=== PATIENT | male | born 1940 | race Caucasian/White ===

== ENCOUNTER 2016-07-09 15:41 | Observation (INO) | payer BC ==
--- NOTE | 2016-07-09 16:15 | EDPHY ---
H & P Stated Complaint: Bleeding per rectum. Had colonscopy 10 days ago with polyp removal. Time Seen by Provider: 07/09/16 15:58 HPI/ROS: CHIEF COMPLAINT: GI bleeding HISTORY OF PRESENT ILLNESS: 76-year-old male with no anticoagulant use postop day [address] Delta Schaefer, experienced a single episode of bright red blood discharge per rectum yesterday afternoon. He has been wearing Depends undergarments and reports 3 episodes today of similar stool mixed in predominantly with bright red blood. No nausea or vomiting. No dizziness. No chest pain. No abdominal pain. No syncope or near syncope. No dyspnea. No prior history of similar. PRIMARY CARE PROVIDER: Dr. Williams Hummel REVIEW OF SYSTEMS: A ten point review of systems was performed and is negative with the exception of the items mentioned in the HPI PAST MEDICAL & SURGICAL HISTORY: Hypertension. SOCIAL HISTORY: . PHYSICAL EXAM (Prior to examination, patient consented to physical exam, hands were washed and my usual and customary physical exam procedures followed) 1) GENERAL: Well-developed, well-nourished, alert and oriented. Appears to be in no acute distress. 2) HEAD: Normocephalic, atraumatic 3) HEENT: Pupils equal, round, reactive to light bilaterally. Sclera anicteric. Nasopharynx, oropharynx, clear, no lesions. 4) NECK: Full range of motion, no meningeal signs. 5) LUNGS: Clear auscultation bilaterally, no wheezes, no rhonchi, no retractions. 6) HEART: Regular rate and rhythm, no murmur, no heave, no gallop. 7) ABDOMEN: No guarding, no rebound, no focal tenderness, negative McBurney's, negative Ames's, negative Rovsing's, negative peritoneal sign, 8) MUSCULOSKELETAL: Moving all extremities, no focal areas of tenderness, no obvious trauma. No peripheral edema or discoloration. 9) BACK: No CVA tenderness, no midline vertebral tenderness, no fluctuance, no step-off, no obvious trauma, no visual or palpable abnormality. 10) SKIN: No rash, no petechiae. 11) rectal: Bright red blood per rectum DIFFERENTIAL DIAGNOSIS: in no particular include but limited to upper GI bleed , lower GI bleed, post polypectomy bleed - Personal History Current Tetanus/Diphtheria Vaccine: Yes Current Tetanus Diphtheria and Acellular Pertussis (TDAP): Yes - Medical/Surgical History Hx Asthma: No Hx Chronic Respiratory Disease: No Hx Diabetes: No Hx Cardiac Disease: No Hx Renal Disease: No Hx Cirrhosis: No Hx Alcoholism: No Hx HIV/AIDS: No Hx Splenectomy or Spleen Trauma: No Other PMH: HTN - Social History Smoking Status: Never smoked Constitutional: Initial Vital Signs Temperature (C) 36.5 C 07/09/16 15:48 Heart Rate 76 07/09/16 15:48 Blood Pressure 147/59 H 07/09/16 15:48 O2 Sat (%) 93 07/09/16 15:48 O2 Delivery Mode Room Air Allergies/Adverse Reactions: No Known Allergies Allergy (Unverified 02/04/15 15:11) Home Medications: Medication Instructions Recorded Crestor 02/04/15 Levoxyl 02/04/15 Lisinopril 02/04/15 Proscar 5 MG (RX) 02/04/15 Medical Decision Making ED Course/Re-evaluation: 4:15 p.m.: I have evaluated the patient. Discussed case Dr. Lina Wilcox. Will plan on more than likely admission 5:05 p.m.: Phone consultation with on-call gastroenterology Dr. mary marsh who recommended patient be admitted, started on GoLYTELY prep and Dr. Pankaj Marques will be consulting for Gastroenterology 5:10 p.m.: Phone consultation with Dr. Ronna Luque who will admit the patient - Data Points Laboratory Results: Laboratory Results 07/09/16 16:00 07/09/16 07/09/16 07/09/16 16:12 16:00 16:00 WBC RBC Hgb Hct MCV MCH MCHC RDW Plt Count MPV Neut % (Auto) Lymph % (Auto) Callahan % (Auto) Eos % (Auto) Baso % (Auto) Nucleat RBC Rel Count Absolute Neuts (auto) Absolute Lymphs (auto) Absolute Monos (auto) Absolute Eos (auto) Absolute Basos (auto) Absolute Nucleated RBC Immature Gran % Immature Gran # PT INR APTT Sodium 140 mEq/L mEq/L (134-144) Potassium 4.2 mEq/L mEq/L (3.5-5.2) Chloride 107 mEq/L mEq/L (97-110) Carbon Dioxide 23 mEq/l mEq/l (22-31) Anion Gap 10 mEq/L mEq/L (8-16) BUN 17 mg/dL mg/dL (7-23) Creatinine 0.9 mg/dL mg/dL (0.7-1.3) Estimated GFR > 60 Glucose 103 mg/dL H mg/dL (70-100) Calcium 8.8 mg/dL mg/dL (8.5-10.4) Stool Occult Bld Scrn POSITIVE H (NEGATIVE) Patient ABO/Rh A POSITIVE Antibody Screen NEGATIVE 07/09/16 07/09/16 16:00 16:00 WBC Pending RBC Pending Hgb Pending Hct Pending MCV Pending MCH Pending MCHC Pending RDW Pending Plt Count Pending MPV Pending Neut % (Auto) Pending Lymph % (Auto) Pending Callahan % (Auto) Pending Eos % (Auto) Pending Baso % (Auto) Pending Nucleat RBC Rel Count Pending Absolute Neuts (auto) Pending Absolute Lymphs (auto) Pending Absolute Monos (auto) Pending Absolute Eos (auto) Pending Absolute Basos (auto) Pending Absolute Nucleated RBC Pending Immature Gran % Pending Immature Gran # Pending PT 13.7 SEC SEC (12.0-15.0) INR 1.06 (0.83-1.16) APTT 26.9 SEC SEC (23.0-38.0) Sodium Potassium Chloride Carbon Dioxide Anion Gap BUN Creatinine Estimated GFR Glucose Calcium Stool Occult Bld Scrn Patient ABO/Rh Antibody Screen Departure - Departure Disposition: [facility] Inpatient Acute Clinical Impression: Post-polypectomy bleeding Condition: Fair
[2016-07-09 16:31] LABS: % IMMATURE GRANULYOCYTES 0.2 % (0.0-1.1); ABSOLUTE IMMATURE GRANULOCYTES 0.02 10^3/uL (0.00-0.10); ADD DIFF? NO; ADD MORPH? NO; ADD SCAN? YES; FRAGMENT RBC FLAG 0 (0-99); HEMATOCRIT 37.1 % (40.0-51.0); HEMOGLOBIN 12.8 g/dL (13.7-17.5); LEFT SHIFT FLG 0 (0-99); LIPEMIA HEMOLYSIS FLAG 90 (0-99); MEAN CELL HEMOGLOBIN 33.3 pg (27.9-34.1); MEAN CELL HEMOGLOBIN CONCENTR. 34.5 g/dL (32.4-36.7); MEAN CELL VOLUME 96.6 fL (81.5-99.8); MEAN PLATELET VOLUME 9.2 fL (8.7-11.7); PLATELET CLUMPS FLAG 0 (0-99); PLATELET COUNT 222 10^3/uL (150-400); RED BLOOD CELL COUNT 3.84 10^6/uL (4.40-6.38); RED CELL DISTRIBUTION WIDTH 13.5 % (11.5-15.2)
[2016-07-09 16:35] LABS: INR 1.06 (0.83-1.16); PROTIME(PATIENT) 13.7 SEC (12.0-15.0)
[2016-07-09 16:36] LABS: APTT 26.9 SEC (23.0-38.0)
[2016-07-09 16:39] LABS: ATYPICAL LYMPHOCYTE FLAG 200 (0-99)
[2016-07-09 16:49] LABS: ANION GAP 10 mEq/L (8-16); CALCIUM 8.8 mg/dL (8.5-10.4); CARBON DIOXIDE 23 mEq/l (22-31); CHLORIDE 107 mEq/L (97-110); CREATININE 0.9 mg/dL (0.7-1.3); GLOMERULAR FILTRATION RATE > 60; GLUCOSE 103 mg/dL (70-100); POTASSIUM 4.2 mEq/L (3.5-5.2); SODIUM 140 mEq/L (134-144)
[2016-07-09 17:14] LABS: SCAN POSITIVE
[2016-07-09 17:18] LABS: PLATELET ESTIMATE ADEQUATE (ADEQ); POLYCHROMASIA 1+
[2016-07-09 17:20] LABS: SMUDGE CELLS 1+
[2016-07-09] MEDS ORDERED: ACETAMINOPHEN 325 MG TAB PO PRN (17:55)
[2016-07-09] MEDS ORDERED: ONDANSETRON DISINTEGRATING 4 MG TAB PO PRN (17:55)
[2016-07-09] MEDS ORDERED: ONDANSETRON 4 MG/2 ML VIAL IVP PRN (17:55)
[2016-07-09] MEDS ORDERED: NS 1,000 ML IV SCH (18:00)
--- NOTE | 2016-07-09 18:33 | PDGENHP ---
History and Physical - Chief Complaint Acute hematochezia - History of Present Illness PCP: Dr. Hummel Primary back office medical assistant: Dr. Schaefer HPI: 76-year-old male presenting with acute hematochezia characterized as copious lauren blood per rectum with onset of symptoms at 2:00 p.m. on 07/08/2016 and duration persistent thereafter. Patient reports that he had just finished skiing in [place] and he felt the urge to defecate. When he went to move his bowels, lauren dark blood immediately emptied into the toilet. Did not experience any rectal or abdominal pain. He has not been experiencing any nausea or vomiting. After that initial episode, the patient began to experience a very slow but steady leakage of bloody material from his rectum. He did not take any medications to slow down the leakage. He has otherwise been taking all of his home medications including aspirin 81 mg daily. He recently underwent a colonoscopy 9 days ago where he had several polyps removed. Dr. Schaefer medical office rep contacted the patient on 07/08 and informed him that these polyps were benign and considered pre cancerous. Was also informed that he had several larger polyps which had not been removed and he was advised to have a repeat colonoscopy in July of 2016. He notes that his exercise tolerance has not recently been reduced and he has not been experiencing any recent chest pain. He did have some associated nausea and discomfort with his last colonoscopy prep. He has otherwise been eating and drinking well. History Information - Allergies/Home Medication List Allergies/Adverse Reactions: No Known Allergies Allergy (Unverified 02/04/15 15:11) Home Medications: Aspirin [Aspirin 81mg (*)] 81 mg PO DAILY 07/09/16 [Last Taken 07/09/16] Atorvastatin Calcium [Lipitor 20 mg (*)] 20 mg PO DAILY 07/09/16 [Last Taken ] Finasteride [Proscar 5 MG (*)] 5 mg PO DAILY 07/09/16 [Last Taken 07/09/16] Herbals/Supplements -Info Only 1 ea PO DAILY 07/09/16 [Last Taken Unknown] Levothyroxine [Synthroid 100 mcg (*)] 100 mcg PO DAILY@06 07/09/16 [Last Taken 07/09/16] Lisinopril [Zestril 20 mg (*)] 20 mg PO DAILY 07/09/16 [Last Taken 07/09/16] Multivitamins [Multivitamin (*)] 1 each PO DAILY 07/09/16 [Last Taken Unknown] I have personally reviewed and updated: family history, medical history, social history, surgical history - Past Medical History hypertension - Surgical History Additional surgical history: Recent colonoscopy with polypectomy 9 days ago, reportedly benign and pre cancers - Family History Additional family history: No family history of GI cancers, patient's father had a myocardial infarction at age 52 - Social History Smoking Status: Never smoked Alcohol Use: Occasionally (Never experienced alcohol withdrawal) Drug Use: None Additional social history: Patient is a retired meterologist for [employer] Review of Systems ROS: 10pt was reviewed & negative except for what was stated in HPI & below Gastrointestinal: Reports: rectal bleeding Physical Exam Temp Pulse Resp BP Pulse Ox 36.5 C 76 147/59 H 93 07/09/16 15:48 07/09/16 15:48 07/09/16 15:48 07/09/16 15:48 Constitutional: no apparent distress, appears nourished, not in pain Eyes: PERRL, anicteric sclera, EOMI Ears, Nose, Mouth, Throat: moist mucous membranes, hearing normal, ears appear normal, no oral mucosal ulcers Cardiovascular: regular rate and rhythym, no murmur, rub, or gallop, No edema Respiratory: no respiratory distress, no rales or rhonchi, clear to auscultation Gastrointestinal: normoactive bowel sounds, soft, non-tender abdomen, no palpable masses Genitourinary: no bladder fullness, no bladder tenderness Skin: warm, normal color, no rashes or abrasions, no fluctuance, no induration, No mottled Neurologic: AAOx3, No facial droop Psychiatric: interacting appropriately, not anxious, not encephalopathic, thought process linear Lab Data & Imaging Review 07/09/16 16:00 07/09/16 16:00 WBC 8.82 10^3/uL (3.80-9.50) 07/09/16 16:00 RBC 3.84 10^6/uL (4.40-6.38) L 07/09/16 16:00 Hgb 12.8 g/dL (13.7-17.5) L 07/09/16 16:00 Hct 37.1 % (40.0-51.0) L 07/09/16 16:00 MCV 96.6 fL (81.5-99.8) 07/09/16 16:00 MCH 33.3 pg (27.9-34.1) 07/09/16 16:00 MCHC 34.5 g/dL (32.4-36.7) 07/09/16 16:00 RDW 13.5 % (11.5-15.2) 07/09/16 16:00 Plt Count 222 10^3/uL (150-400) 07/09/16 16:00 MPV 9.2 fL (8.7-11.7) 07/09/16 16:00 Neut % (Auto) 29.7 % (39.3-74.2) L 07/09/16 16:00 Lymph % (Auto) 61.1 % (15.0-45.0) H 07/09/16 16:00 [place] % (Auto) 6.7 % (4.5-13.0) 07/09/16 16:00 Eos % (Auto) 1.6 % (0.6-7.6) 07/09/16 16:00 Baso % (Auto) 0.7 % (0.3-1.7) 07/09/16 16:00 Nucleat RBC Rel Count 0.0 % (0.0-0.2) 07/09/16 16:00 Absolute Neuts (auto) 2.62 10^3/uL (1.70-6.50) 07/09/16 16:00 Absolute Lymphs (auto) 5.39 10^3/uL (1.00-3.00) H 07/09/16 16:00 Absolute Monos (auto) 0.59 10^3/uL (0.30-0.80) 07/09/16 16:00 Absolute Eos (auto) 0.14 10^3/uL (0.03-0.40) 07/09/16 16:00 Absolute Basos (auto) 0.06 10^3/uL (0.02-0.10) 07/09/16 16:00 Absolute Nucleated RBC 0.00 10^3/uL (0-0.01) 07/09/16 16:00 Immature Gran % 0.2 % (0.0-1.1) 07/09/16 16:00 Seg Neutrophils % 18 % 07/09/16 16:00 Band Neutrophils % 8 % 07/09/16 16:00 Lymphocytes % 61 % 07/09/16 16:00 Monocytes % 8 % 07/09/16 16:00 Eosinophils % 5 % 07/09/16 16:00 Immature Gran # 0.02 10^3/uL (0.00-0.10) 07/09/16 16:00 Absolute Seg Neuts 1.59 10^/uL (1.70-6.50) L 07/09/16 16:00 Absolute Band Neuts 0.71 10^3/uL (0.00-0.70) H 07/09/16 16:00 Absolute Lymphocytes 5.38 10^3/uL (1.00-3.00) H 07/09/16 16:00 Absolute Monocytes 0.71 10^3/uL (0.30-0.80) 07/09/16 16:00 Absolute Eosinophils 0.44 10^3/uL (0.03-0.40) H 07/09/16 16:00 Atypical Lymphocytes 2+ H 07/09/16 16:00 Smudge Cells 1+ H 07/09/16 16:00 Platelet Estimate ADEQUATE (ADEQ) 07/09/16 16:00 Polychromasia 1+ H 07/09/16 16:00 PT 13.7 SEC (12.0-15.0) 07/09/16 16:00 INR 1.06 (0.83-1.16) 07/09/16 16:00 APTT 26.9 SEC (23.0-38.0) 07/09/16 16:00 Sodium 140 mEq/L (134-144) 07/09/16 16:00 Potassium 4.2 mEq/L (3.5-5.2) 07/09/16 16:00 Chloride 107 mEq/L (97-110) 07/09/16 16:00 Carbon Dioxide 23 mEq/l (22-31) 07/09/16 16:00 Anion Gap 10 mEq/L (8-16) 07/09/16 16:00 BUN 17 mg/dL (7-23) 07/09/16 16:00 Creatinine 0.9 mg/dL (0.7-1.3) 07/09/16 16:00 Estimated GFR > 60 07/09/16 16:00 Glucose 103 mg/dL (70-100) H 07/09/16 16:00 Calcium 8.8 mg/dL (8.5-10.4) 07/09/16 16:00 Stool Occult Bld Scrn POSITIVE (NEGATIVE) H 07/09/16 16:12 Patient ABO/Rh A POSITIVE 07/09/16 16:00 Antibody Screen NEGATIVE 07/09/16 16:00 Imaging Review: Ultrasound LE neg for DVT in 2014 Assessment & Plan Assessment: 76-year-old male presenting with acute lower gastrointestinal hemorrhage and acute blood loss anemia Plan: 1. Acute lower gastrointestinal hemorrhage. Acute, new problem this provider, further workup indicated. Most likely secondary to post polypectomy bleeding, patient has experienced subsequent anemia but no hemodynamic instability, fecal occult blood test positive -discussed with Dr. Marques, he recommends clear liquid diet this evening and he will investigate the previously noted larger polyps while he is performing colonoscopy tomorrow to locate the bleed -bowel prep this evening -continue IV fluids given possible ongoing losses -hold aspirin 2. Acute blood loss anemia. Evidenced by hemoglobin level of 12.8 with baseline hemoglobin level 15.6 upon review of outside records including CBC from 11/11/[address] Hummel office -does not warrant blood transfusion at this time -if patient experiences higher volume blood loss this evening, repeat CBC immediately -repeat CBC in a.m. 3. Hypertension. Chronic, continue home antihypertensive as patient is currently not hemodynamically unstable and we would want to avoid a hypertensive mediated bleed Diet. Clear liquid diet, NPO after midnight Prophylaxis. Moderate risk patient, SCDs, pharm contraindicated Code. Full, is MPOA Disposition. Anticipated discharge is 07/10/2016, pending further workup as outlined above.
[2016-07-09] MEDS ORDERED: GOLYTELY 4000 ML BTL PO ONE (22:00)
[2016-07-10 05:10] LABS: ALANINE AMINOTRANSFERASE 85 IU/L (21-72); ALBUMIN 2.8 g/dL (3.5-5.0); ALKALINE PHOSPHATASE 67 IU/L (38-126); ANION GAP 6 mEq/L (8-16); ASPARTATE AMINOTRANSFERASE 50 IU/L (17-59); BILIRUBIN,TOTAL 0.6 mg/dL (0.1-1.4); CALCIUM 8.2 mg/dL (8.5-10.4); CARBON DIOXIDE 26 mEq/l (22-31); CHLORIDE 107 mEq/L (97-110); CREATININE 0.9 mg/dL (0.7-1.3); GLOMERULAR FILTRATION RATE > 60; GLUCOSE 98 mg/dL (70-100); POTASSIUM 4.2 mEq/L (3.5-5.2); SODIUM 139 mEq/L (134-144); TOTAL PROTEIN 6.2 g/dL (6.3-8.2)
[2016-07-10 05:12] LABS: ADD MORPH? NO; ADD SCAN? YES; FRAGMENT RBC FLAG 0 (0-99); HEMATOCRIT 35.3 % (40.0-51.0); HEMOGLOBIN 11.8 g/dL (13.7-17.5); LEFT SHIFT FLG 0 (0-99); LIPEMIA HEMOLYSIS FLAG 80 (0-99); MEAN CELL HEMOGLOBIN 32.4 pg (27.9-34.1); MEAN CELL HEMOGLOBIN CONCENTR. 33.4 g/dL (32.4-36.7); MEAN PLATELET VOLUME 8.9 fL (8.7-11.7); PLATELET CLUMPS FLAG 0 (0-99); PLATELET COUNT 194 10^3/uL (150-400); RED BLOOD CELL COUNT 3.64 10^6/uL (4.40-6.38); RED CELL DISTRIBUTION WIDTH 13.5 % (11.5-15.2)
[2016-07-10 05:13] LABS: ATYPICAL LYMPHOCYTE FLAG 160 (0-99)
[2016-07-10 05:58] LABS: ADD DIFF? YES; SCAN POSITIVE
[2016-07-10] MEDS ORDERED: LEVOTHYROXINE 100 MCG TAB PO SCH (06:00)
[2016-07-10 06:07] LABS: LARGE PLATELETS PRESENT; PLATELET ESTIMATE ADEQUATE (ADEQ); POLYCHROMASIA 1+
[2016-07-10] MEDS ORDERED: Herbals/Supplements -Info Only PO SCH (09:00)
[2016-07-10] MEDS ORDERED: MULTIVITAMINS 1 EACH TAB PO SCH (09:00)
[2016-07-10] MEDS ORDERED: FINASTERIDE 5 MG TAB PO SCH (09:00)
[2016-07-10] MEDS ORDERED: ATORVASTATIN CALCIUM 20 MG TAB PO SCH (09:00)
[2016-07-10] MEDS ORDERED: LISINOPRIL 20 MG TAB PO SCH (09:00)
[2016-07-10] MEDS ORDERED: fentaNYL 100 MCG/2 ML INJ ONE (09:12)
[2016-07-10] MEDS ORDERED: MIDAZOLAM 2 MG/2 ML VIAL ONE (09:12)
--- NOTE | 2016-07-10 09:57 | GCON ---
[f rep st] CONSULTATION GI INPATIENT CONSULTATION. DATE OF CONSULTATION: 07/10/2016 HISTORY OF PRESENT ILLNESS: I was kindly requested to see this patient by Dr. Andrea Mederos in consultation for a chief complaint of lower gastrointestinal bleeding. This began yesterday afternoon. He had multiple episodes of dark blood per rectum. With this, he denied any abdominal pain. He recently underwent a colonoscopy 9 days ago by my partner, Dr. Schaefer. This was on June 30. He received 100 mcg of fentanyl and 4 mg of Versed. The prep was somewhat suboptimal. He had a normal terminal ilium. There were 3 ascending colon polyps, 15-25 mm in size, which were felt not to be safe to remove with standard polypectomy. He had a 12 mm proximal ascending colon polyp , which was removed with a hot snare. He had 2 descending colon polyps, 10 and 12 mm in size, also removed with this snare cautery. These al returned as sessile serrated adenomas. The plan at that point was a repeat colonoscopy in about [address] Barcenas, at [facility], doing endoscopic mucosal resection on his remaining polyps. Besides a split prep, the plan was also to have him drink a bottle of magnesium citrate. He is on aspirin. Initial hematocrit 37.1%. Subsequent hematocrit 35.3%. PAST MEDICAL HISTORY: 1. As above. 2. Hypertension. 3. Otherwise, noncontributory. OUTPATIENT MEDICATIONS: The above. SOCIAL HISTORY: He is retired radiologist. FAMILY HISTORY: Negative for similar bleeding. REVIEW OF SYSTEMS: Positive pertinent review of systems as per my HPI. Otherwise, a complete review of systems is negative. PHYSICAL EXAM: CONSTITUTIONAL: Nontoxic-appearing gentleman. SKIN: Warm, dry. EYES: Pupils equal, round, reactive to light and accommodation. EAR, NOSE , MOUTH, AND THROAT: Oropharynx without masses, moist mucosa. CARDIOVASCULAR: Normal S2, normal PMI. RESPIRATORY: Clear to auscultation and percussion anteriorly. GASTROINTESTINAL: Abdomen is soft, nontender. NEUROLOGIC: Grossly nonfocal, cranial nerves grossly intact. PSYCHIATRIC: Orientation, insight appropriate. MUSCULOSKELETAL: Strength is grossly normal throughout, normal station. LABORATORIES: Include the above. Normal electrolytes. Normal coags. Stool Hemoccult positive. ASSESSMENT: Lower gastrointestinal bleeding, almost certainly represents a post polypectomy bleed. PLAN: Urgent colonoscopy. Thank you for allowing me to help in the care and management of patient. /[id number]/MODL MTDD
--- NOTE | 2016-07-10 10:23 | GPN ---
[f rep st] PROCEDURE NOTE DATE OF PROCEDURE: 07/10/2016 PROCEDURE: Colonoscopy. PREPROCEDURE DIAGNOSIS: Lower gastrointestinal bleeding. POSTPROCEDURE DIAGNOSIS: No further bleeding present. PREMEDICATION: Fentanyl 100 mcg IV, Versed 5 mg IV. COMPLICATIONS: None. TOTAL LENGTH OF PROCEDURE: From beginning of sedation to end of procedure was 22 minutes. FINDINGS: After informed consent was obtained, the patient was placed in left lateral decubitus position. Video adult colonoscope was placed in the rectum, advanced to the cecum. Upon slow withdrawal, in the ascending colon, a post polypectomy site could be seen, with a bland white eschar, some slight redness, but no visible vessel, no active bleeding, and no stigmata of risk for rebleeding. The other polyps that Dr. Schaefer had noted were seen in the ascending colon. The 2 post polypectomy sites in the descending colon were now healed over. No active bleeding seen whatsoever. Some mild sigmoid diverticulosis. Some mild internal hemorrhoids seen as well. IMPRESSION: Suspect he indeed had a post polypectomy bleed from his colonoscopy on May [address] Schaefer. However, now, no further evidence of bleeding and very little risk of rebleeding. PLAN: 1. Will let him eat. 2. Buff cap IV. 3. From a GI standpoint, okay to discharge home. Okay for him to restart aspirin in 3 days. 4. Otherwise, the plan as per Dr. Schaefer will be for the patient to have repeat colonoscopy in about [address] Barcenas at [facility] , doing endoscopic mucosal resection on his remaining polyps. Besides the usual split prep, he will drink 1 bottle of magnesium citrate. I will also alert Dr. Barcenas's nurse that the patient should be off aspirin for 1 week prior, due to his possible high risk of post polypectomy bleeds. I will sign off. Please let me know if we can be of further help in the future. /[id number]/MODL MTDD
[2016-07-10 10:42] VITALS: BP 132/93; PULSE 53; RESP 18; TEMP 98.6; O2SAT 96
--- NOTE | 2016-07-10 11:57 | GDS ---
[f rep st] DISCHARGE SUMMARY HOSPITAL COURSE: The patient is a 76-year-old male who presented to the emergency room with complai nts of bright red blood per rectum. He was prepped during this hospitalization and received a colon oscopy performed by Dr. Marques. Colonoscopy indicates no further evidence of bleeding at this time. It is suspected that the patient had a postpolypectomy bleed from his previous colonoscopy on . Patient is tolerating a regular diet and eager to go home. He will discontinue his normal aspirin intake and follow up with Dr. Barcenas in the outpatient setting for a scheduled endoscopic res ection of his remaining polyps. The patient is aware of this plan and eager to be discharged home. There are no pending studies. DISCHARGE MEDICATIONS: Please refer to EMR form. I have re-initiated the patient's previously pres cribed home medications with the exception of his aspirin. PHYSICAL EXAM: GENERAL: The patient is alert. VITAL SIGNS: Afebrile 37, pulse is 53, respiratory rate is 18, blood pressure is 132/93, saturating 96% on 2 L, greater than 90% on room air. I have seen and evaluated the patient prior to disposition. FOLLOWUP: Again will be with Dr. Barcenas as well as the patient's primary care physician in the outpat ient setting. /[id number]/MODL
== END 2016-07-10 13:52 | disposition home or self-care (01) ==
LOC: INTOOBSV 17:11 → F3E 20:00
PROVIDERS: ADMIT Internal Medicine; ATTEND Internal Medicine
PROC: 0DJD8ZZ Inspection of Lower Intestinal Tract, Via Natural or Artificial Opening Endoscopic (ICD-10-PCS; principal; 2016-07-09)
DX: K62.5 Hemorrhage of anus and rectum (principal); D62 Acute posthemorrhagic anemia; I10 Essential (primary) hypertension
CPT/HCPCS: 45378; 99285; G0378; J0171; J2250; J3010

== ENCOUNTER 2018-05-26 08:24 | Day surgery (SDC) | payer BC, OTHER ==
[2018-05-26] MEDS ORDERED: ceFAZolin 2 GM/DEXTROSE 100 ML IV ONE (08:31)
[2018-05-26] MEDS ORDERED: LR 1,000 ML IV ONE (08:54)
[2018-05-26] MEDS ORDERED: BUPIVACAINE 0.5% 30 ML SDV ONE (09:56)
[2018-05-26] MEDS ORDERED: MIDAZOLAM 2 MG/2 ML VIAL ONE (11:49)
[2018-05-26] MEDS ORDERED: LIDOCAINE 2% 100 MG/5 ML SYR ONE (11:54)
[2018-05-26] MEDS ORDERED: PROPOFOL 200 MG/20 ML VIAL ONE (11:54)
[2018-05-26] MEDS ORDERED: DEXAMETHASONE 4 MG/ML VIAL ONE (11:54)
[2018-05-26] MEDS ORDERED: ONDANSETRON 4 MG/2 ML VIAL ONE (11:54)
[2018-05-26] MEDS ORDERED: fentaNYL 100 MCG/2 ML INJ ONE (11:54)
[2018-05-26] MEDS ORDERED: MIDAZOLAM 2 MG/2 ML VIAL IVP ONE (12:00)
[2018-05-26] MEDS ORDERED: METHYLENE BLUE 0.5% 50 MG/10 ML AMP ONE (12:26)
--- NOTE | 2018-05-26 12:27 | PDANEPAE ---
ANE History of Present Illness melanoma, here for excision and L ax sentinel node excision ANE Past Medical History - Cardiovascular History Hx Hypertension: Yes Hx Arrhythmias: No Hx Chest Pain: No Hx Coronary Artery / Peripheral Vascular Disease: No Hx CHF / Valvular Disease: No Hx Palpitations: No - Pulmonary History Hx COPD: No Hx Asthma/Reactive Airway Disease: No Hx Recent Upper Respiratory Infection: No Hx Oxygen in Use at Home: No Hx Sleep Apnea: No Sleep Apnea Screening Result - Last Documented: Positive - Neurologic History Hx Cerebrovascular Accident: No Hx Seizures: No Hx Dementia: No - Endocrine History Hx Diabetes: No - Renal History Hx Renal Disorders: No - Liver History Hx Hepatic Disorders: No - Neurological & Psychiatric Hx Hx Neurological and Psychiatric Disorders: No - Cancer History Hx Cancer: No - Congenital Disorder History Hx Congenital Disorders: No - GI History Hx Gastrointestinal Disorders: No - Other Health History Other Health History: none - Chronic Pain History Chronic Pain: No - Surgical History Prior Surgeries: last yr exempla ESSIE Review of Systems Review of Systems: - Exercise capacity METS (RN): 6 METS ANE Patient History - Allergies Allergies/Adverse Reactions: No Known Allergies Allergy (Verified 05/25/18 17:01) - Home Medications Home Medications: RX: Atorvastatin Calcium [Lipitor 20 mg (*)] 07/09/16 [Last Taken 05/25/18] RX: Finasteride [Proscar 5 MG (*)] 07/09/16 [Last Taken 05/25/18] RX: Herbals/Supplements -Info Only 07/09/16 [Last Taken 05/25/18] RX: Levothyroxine [Synthroid 100 mcg (*)] 07/09/16 [Last Taken 05/25/18] RX: Lisinopril [Zestril 20 mg (*)] 07/09/16 [Last Taken 05/25/18] RX: Multivitamins [Multivitamin (*)] 07/09/16 [Last Taken 05/25/18] RX: Acetaminophen [Tylenol 325mg (*)] 05/25/18 [Last Taken 03/27/18] Aspirin 81mg (*) 05/26/18 [Last Taken 05/25/18] - NPO status NPO Since - Liquids (Date): 05/25/18 NPO Since - Liquids (Time): 21:00 NPO Since - Solids (Date): 05/25/18 NPO Since - Solids (Time): 19:00 - Smoking Hx Smoking Status: Former smoker - Family Anes Hx Family Hx Anesthesia Complications: none ANE Labs/Vital Signs - Vital Signs Blood Pressure: 149/80 Heart Rate: 52 Respiratory Rate: 20 O2 Sat (%): 96 Height: 177.8 cm Weight: 90.718 kg ANE Physical Exam - Airway Neck exam: FROM Mallampati Score: Class 2 Mouth exam: normal dental/mouth exam - Pulmonary Pulmonary: no respiratory distress, no rales or rhonchi - Cardiovascular Cardiovascular: regular rate and rhythym, no murmur, rub, or gallop - ASA Status ASA Status: II ANE Anesthesia Plan Anesthesia Plan: GA w LMA Total IV Anesthesia: No
--- NOTE | 2018-05-26 13:11 | POSTOPPROG ---
Post Op Note Date of Operation: 05/26/18 Surgeon: Viridiana Gay Anesthesiologist: renetta Anesthesia: GET(General Endotracheal) Pre-op Diagnosis: Melanoma back Post-op Diagnosis: same Indication: 78yo M with melanoma upper left back Procedure: WLE back with SLN L axilla Findings: none unusual Inf/Abcess present in the surg proc area at time of surgery?: No EBL: Minimal Specimen(s): L SLN Back wide local excision
[2018-05-26] MEDS ORDERED: NALOXONE HCL 0.4 MG/ML INJ IVP PRN (13:55)
[2018-05-26] MEDS ORDERED: DIAZEPAM 5 MG/ML 1 ML SYR IVP PRN (13:55)
[2018-05-26] MEDS ORDERED: ONDANSETRON 4 MG/2 ML VIAL IVP PRN (13:55)
[2018-05-26] MEDS ORDERED: LR 500 ML IV PRN (13:55)
[2018-05-26] MEDS ORDERED: MEPERIDINE 25 MG/0.5 ML AMP IVP PRN (13:55)
[2018-05-26] MEDS ORDERED: DEXAMETHASONE 4 MG/ML VIAL IVP PRN (13:55)
[2018-05-26] MEDS ORDERED: HYDROmorphONE/DILAUDID 2 MG/ML INJ IVP PRN (13:55)
[2018-05-26] MEDS ORDERED: fentaNYL 100 MCG/2 ML INJ IVP PRN (13:55)
[2018-05-26] MEDS ORDERED: ACETAMINOPHEN 500 MG TAB PO PRN (13:55)
[2018-05-26] MEDS ORDERED: oxyCODONE IR 5 MG TAB PO PRN (13:55)
--- NOTE | 2018-05-26 13:59 | GOP ---
[f rep st] OPERATIVE REPORT DATE OF OPERATION: 05/26/2018 SURGEON: Viridiana Gay MD ANESTHESIA: General. ANESTHESIOLOGIST: Judith Cid DO. PREOPERATIVE DIAGNOSIS: Malignant melanoma, left upper back. POSTOPERATIVE DIAGNOSIS: Malignant melanoma, left upper back. PROCEDURE PERFORMED: Wide local excision of malignant melanoma and left sentinel lymph node biopsy. FINDINGS: SPECIMENS: Wide local excision, 6 x 4 x 2 cm, short superior, long lateral, and left sentinel lymph node. ESTIMATED BLOOD LOSS: 10 cc. INDICATIONS: The patient is a 78-year-old man with malignant melanoma. DESCRIPTION OF PROCEDURE: Patient was brought into the operating room, placed supine on the table. General anesthesia was administered. His back and axilla were prepped and draped in the usual steril e fashion. I infiltrated all sites with 0.5% Marcaine prior to making incisions. I marked 2 cm arou nd the malignant melanoma and then elongated my incision to make an ellipse so that it would close ea sier. I excised down to the level of the fascia. It was marked short superior, long lateral. Submi tted to Pathology for permanent. Prior to the case, I had injected methylene blue underneath the efren anoma. I closed the deep layer with 2-0 Vicryl. I placed a 10 round silicone drain. I sewed this i nto place with 3-0 nylon. I closed the skin with 3-0 Vicryl, followed by 4-0 Monocryl. Due to his a ctive lifestyle, I also reinforced this with 3-0 nylon. Next, I made an incision beneath the hair-bearing portion on his left axilla. I dissected down throu gh skin and subcutaneous space, and I entered the axillary space. I encountered the lymph node which had a small amount of blue dye in it. It also measured around 1000. The background was extremely q uiet. Hemostasis was achieved. The wound was closed with 3-0 Vicryl, followed by 4-0 Monocryl. Mas tisol and Steri-Strips were applied. Sterile dressings applied around the drain, back incision, and axillary incision. He was awakened in the operating room, placed supine, extubated, transferred to P ACU in stable condition. He tolerated the procedure well. /[id number]/MODL
[2018-05-26] MEDS ORDERED: DIAZEPAM 5 MG/ML 1 ML SYR ONE (14:35)
[2018-05-26 15:29] VITALS: BP 131/68
[2018-05-26] MEDS ORDERED: oxyCODONE IR 5 MG TAB ONE (15:39)
== END 2018-05-26 16:16 | disposition home or self-care (01) ==
LOC: FSGY 08:24
PROVIDERS: ATTEND Surgery
PROC: 0JQ70ZZ Repair Back Subcutaneous Tissue and Fascia, Open Approach (ICD-10-PCS; principal; 2018-05-26 11:45)
PROC: 0JB70ZZ Excision of Back Subcutaneous Tissue and Fascia, Open Approach (ICD-10-PCS; principal; 2018-05-26 11:45)
PROC: 07B60ZX Excision of Left Axillary Lymphatic, Open Approach, Diagnostic (ICD-10-PCS; principal; 2018-05-26 11:45)
PROC: 3E0W3HZ Introduction of Radioactive Substance into Lymphatics, Percutaneous Approach (ICD-10-PCS; 2018-05-26 11:45)
DX: C43.59 Malignant melanoma of other part of trunk (principal); I10 Essential (primary) hypertension; Z87.891 Personal history of nicotine dependence
CPT/HCPCS: 11606; 12032; 38500; 78195; A9520; J0690; J1100; J2001; J2250; J2405; J2704; J3010; J3360; Q9968